=== PATIENT | male | born 1995 | race Caucasian/White ===

== ENCOUNTER 2017-07-22 23:28 | Emergency (ER) | payer BC ==
[~2017-07-22] VITALS: Ht 188 cm; Wt 104.5 kg
[2017-07-22 23:32] VITALS: BP 140/64; TEMP 98.3
[2017-07-22] MEDS ORDERED: ADDERALL20 MG PO (23:34)
[2017-07-23 00:53] VITALS: PULSE 88
== END 2017-07-23 00:54 | disposition home or self-care (01) ==
LOC: COL.ER 23:28
DX: S93.491A Sprain of other ligament of right ankle, initial encounter (principal); S93.601A Unspecified sprain of right foot, initial encounter; Z85.71 Personal history of Hodgkin lymphoma; Z91.048 Other nonmedicinal substance allergy status; X50.1XXA Overexertion from prolonged static or awkward postures, initial encounter; Y92.310 Basketball court as the place of occurrence of the external cause; Z87.81 Personal history of (healed) traumatic fracture
CPT/HCPCS: Q4045